=== PATIENT | female | born 1985 | race Caucasian/White ===

== ENCOUNTER → 2016-08-14 | Outpatient (CLI) | payer BC, OTHER ==
[~2016-08-14] MED LIST: ASCO1CAP3; CALC500C70 PO; FERR1TAB23; FOLI1TAB7 PO; MTR600X PO; MULT-506 PO; OXYC-57 PO; PRENTAB26 PO
[2016-08-14 17:56] LABS: MANUAL MICROSCOPIC REQUIRED? NO; REVIEW REQ? NO; URINE APPEARANCE CLEAR (CLEAR); URINE BILIRUBIN NEG (NEG); URINE COLOR YELLOW; URINE EPITHELIAL CELL AUTO >30 /lpf (0-5); URINE NITRITE NEG (NEG); URINE PH 7.5 (4.5-7.5); URINE SPECIFIC GRAVITY 1.011 (1.000-1.030); UROBILINOGEN NEG (NEG)
== END | disposition home or self-care (01) ==
LOC: C.LABSPEC 12:13
PROVIDERS: ATTEND Obstetrics & Gynecology
DX: O09.213 Supervision of pregnancy with history of pre-term labor, third trimester (principal)

== ENCOUNTER → 2016-08-15 | Outpatient (CLI) | payer BC, OTHER ==
[2016-08-15 09:49] LABS: HEMATOCRIT 32.5 % (37-47)
[2016-08-15 11:29] LABS: GTGD 50 Grams
== END | disposition home or self-care (01) ==
LOC: C.LAB 15:36
PROVIDERS: ATTEND Obstetrics & Gynecology
DX: O09.213 Supervision of pregnancy with history of pre-term labor, third trimester (principal)

== ENCOUNTER → 2016-10-08 | Outpatient (CLI) | payer BC | END | disposition home or self-care (01) | LOC: C.LABSPEC 17:24 | PROVIDERS: ATTEND Obstetrics & Gynecology | DX: O09.213 Supervision of pregnancy with history of pre-term labor, third trimester (principal) ==

== ENCOUNTER → 2016-10-18 | Outpatient (CLI) | payer BC ==
[2016-10-18 13:51] LABS: BASO % 0.1 %; BASO ABS # 0.01 K/uL (0-0.2); COMPLETE YES; EOS % 3.1 %; HEMATOCRIT 34.3 % (37-47); IG% 0.4 %; LYMPH % 13.9 %; MEAN CELL VOLUME 89.1 fL (80-100); MEAN CORPUSCULAR HEMOGLOBIN 31.2 pg (25-34); MEAN PLATELET VOLUME 10.9 fL (7.4-10.4); MONO % 5.4 %; NEUT % 77.1 %; PLATELET COUNT 206 K/uL (130-400); RED BLOOD COUNT 3.85 M/uL (4.2-5.4); WHITE BLOOD COUNT 10.08 K/uL (4.8-10.8)
[2016-10-18 14:22] LABS: ALT/SGPT 16 U/L (12-78); AST/SGOT 15 U/L (15-37); CREATININE 0.47 mg/dl (0.60-1.20); URIC ACID 5.3 mg/dl (2.6-7.2)
== END | disposition home or self-care (01) ==
LOC: C.LAB 16:40
PROVIDERS: ATTEND Obstetrics & Gynecology
DX: O09.213 Supervision of pregnancy with history of pre-term labor, third trimester (principal)

== ENCOUNTER → 2016-10-21 | Outpatient (CLI) | payer BC ==
[2016-10-21 12:03] LABS: URINE TOTAL PROTEIN 11.2 mg/dl (0-11.9)
[2016-10-21 13:25] LABS: URINE TOTAL PROTEIN CALC 179.2 mg/24 hr (0-149.1)
== END | disposition home or self-care (01) ==
LOC: C.LABSPEC 09:53
PROVIDERS: ATTEND Obstetrics & Gynecology
DX: O09.213 Supervision of pregnancy with history of pre-term labor, third trimester (principal)

== ENCOUNTER 2016-11-01 12:37 | Inpatient (IN) | payer BC ==
[~2016-11-01] VITALS: Ht 154.9 cm; Wt 83.6 kg
[~2016-11-01 12:37] MED LIST changes: -ASCO1CAP3; -CALC500C70 PO; -FERR1TAB23; -FOLI1TAB7 PO; -MTR600X PO; -OXYC-57 PO; -PRENTAB26 PO
[2016-11-01] MEDS ORDERED: PRENTAB26 PO (13:33)
[2016-11-01] MEDS ORDERED: CALC500C70 PO (13:33)
[2016-11-01] MEDS ORDERED: ASCO1CAP3 (13:33)
[2016-11-01] MEDS ORDERED: FOLI1TAB7 PO (13:33)
[2016-11-01] MEDS ORDERED: FERR1TAB23 (13:33)
[2016-11-01 13:49] VITALS: Ht 154.9 cm; Wt 83.6 kg
[2016-11-01 14:30] LABS: BASO % 0.2 %; BASO ABS # 0.02 K/uL (0-0.2); COMPLETE YES; EOS % 2.7 %; HEMATOCRIT 34.1 % (37-47); IG% 0.3 %; LYMPH ABS # 1.22 K/uL (1.2-3.4); MEAN CELL VOLUME 90.2 fL (80-100); MEAN CORPUSCULAR HEMOGLOBIN 31.5 pg (25-34); MEAN CORPUSCULAR HGB CONC 34.9 g/dl (32-36); MEAN PLATELET VOLUME 11.7 fL (7.4-10.4); MONO % 6.3 %; NEUT % 77.5 %; PLATELET COUNT 188 K/uL (130-400); RED BLOOD COUNT 3.78 M/uL (4.2-5.4)
[2016-11-01 14:43] LABS: ALT/SGPT 17 U/L (12-78); BLOOD UREA NITROGEN 7 mg/dl (7-18); BUN/CREATININE RATIO 14.8 (10-20); CALCIUM 8.6 mg/dl (8.5-10.1); CARBON DIOXIDE 25 mmol/L (21-32); CHLORIDE 104 mmol/L (98-107); CREATININE 0.44 mg/dl (0.60-1.20); GLUCOSE 72 mg/dl (70-99); POTASSIUM 3.9 mmol/L (3.5-5.1); SODIUM 140 mmol/L (136-145)
[2016-11-01 14:47] LABS: ALB/GLOB RATIO 0.8 (0.9-2); ALKALINE PHOSPHATASE 138 U/L (45-117); AST/SGOT 15 U/L (15-37)
[2016-11-01] MEDS ORDERED: LACTATED RINGER'S 1000ML 500 ML IV PRN (19:41)
[2016-11-01] MEDS ORDERED: OXYTOCIN 30 UNITS/500ML NSS IV PRN (19:45)
[2016-11-01] MEDS: LACTATED RINGER'S 1000ML 1,000 ML IV SCH (20:00)
[2016-11-01] MEDS ORDERED: BUPIVACAINE 0.25% 30 ML VIAL ONE (23:42)
[2016-11-01] MEDS ORDERED: EpHEDrine SULFATE INJ 50 MG/ML AMP ONE (23:43)
[2016-11-01] MEDS ORDERED: FENTANYL CITRATE INJ 50 MCG/1 ML 2 ML VIAL ONE (23:43)
[2016-11-01] MEDS ORDERED: FENTANYL 2MCG/ML ROPIV 1.25MG/ML 100ML BAG EPI ONE (23:44)
[2016-11-02] MEDS: LACTATED RINGER'S 1000ML 1,000 ML IV SCH ×3 (00:20→11:53)
[2016-11-02] MEDS ORDERED: NALOXONE HCL INJ 1 MG in SODIUM CHLORIDE 0.9% 1000ML 1,000 ML IV PRN ×3 (00:34→17:59)
[2016-11-02] MEDS ORDERED: LACTATED RINGER'S 1000ML 500 ML IV PRN ×3 (00:34→17:59)
[2016-11-02] MEDS ORDERED: NALBUPHINE HCL INJ 10 MG/ML AMP IV PRN ×3 (00:45→18:00)
[2016-11-02] MEDS ORDERED: ONDANSETRON INJ 2 MG/ML 2 ML VIAL IV PRN ×3 (00:45→18:00)
[2016-11-02] MEDS ORDERED: EpHEDrine SULFATE INJ 50 MG/ML AMP IV PRN ×4 (00:45→18:00)
[2016-11-02] MEDS ORDERED: NALOXONE HCL INJ 0.4 MG/1 ML VIAL/CARP IV PRN ×2 (00:45→10:15)
[2016-11-02] MEDS ORDERED: DiphenhydrAMINE HCL 50 MG/ML VIAL IV PRN ×4 (00:45→18:00)
[2016-11-02] MEDS: FENTANYL 2MCG/ML ROPIV 1.25MG/ML 100ML BAG EPI PRN ×6 (00:49→15:23)
[2016-11-02] MEDS ORDERED: ACETAMINOPHEN 650 MG SUPP PR STA (07:49)
[2016-11-02] MEDS ORDERED: BUPIVACAINE 0.25% 30 ML VIAL ONE (08:21)
[2016-11-02] MEDS ORDERED: FENTANYL CITRATE INJ 50 MCG/1 ML 2 ML VIAL ONE (08:22)
[2016-11-02] MEDS ORDERED: GENTAMICIN CONSULT ACTIVE PRN (09:45)
[2016-11-02] MEDS: AMPICILLIN IV 2 GM in SODIUM CHLOR 0.9% AD-VAN 50ML 50 ML IV SCH ×3 (10:05→22:20)
[2016-11-02] MEDS: DEXTROSE 5% IV SCH ×2 (12:17→20:23)
[2016-11-02] MEDS: GENTAMICIN IV SCH ×2 (12:17→20:23)
[2016-11-02] MEDS ORDERED: CITRIC ACID/SODIUM CITRATE 15 ML UDC PO ONE (16:45)
[2016-11-02] MEDS ORDERED: CEFAZOLIN IV 2,000 MG in DEXTROSE 5% 50ML 50 ML IV SCH (17:00)
[2016-11-02] MEDS ORDERED: LIDOCAINE/EPINEPHRINE 2% 1:200,000 20 ML SDV ONE (17:38)
[2016-11-02] MEDS ORDERED: OXYTOCIN INJ 10 UNITS/ML VIAL ONE (17:38)
[2016-11-02] MEDS ORDERED: MoRPHine SULFATE PF 1 MG/ML 10 ML AMP/VIAL ONE (17:39)
[2016-11-02] MEDS ORDERED: NALOXONE HCL INJ 0.08 MG in SYRINGE 1.8 ML IV PRN (17:59)
[2016-11-02] MEDS ORDERED: SODIUM CHLORIDE 0.9% 1000ML 1,000 ML IV PRN (17:59)
[2016-11-02] MEDS ORDERED: KETOROLAC TROMETHAMINE 30 MG/ML VIAL IV. PRN (18:00)
[2016-11-02] MEDS ORDERED: MoRPHine SULFATE PF 1 MG/ML 10 ML AMP/VIAL EPI PRN (18:00)
[2016-11-02] MEDS ORDERED: METOCLOPRAMIDE HCL INJ 20 MG in SODIUM CHLORIDE 0.9% 50ML 50 ML IV PRN (18:00)
[2016-11-02] MEDS ORDERED: MoRPHine SULFATE 2 MG/ML CARP IV PRN (18:00)
[2016-11-02] MEDS ORDERED: LABETALOL HCL IV 5 MG/ML 20ML IV PRN (18:00)
[2016-11-02] MEDS ORDERED: ATROPINE SULFATE 0.1 MG/ML 5ML SYR IV PRN (18:00)
[2016-11-02] MEDS ORDERED: MEPERIDINE HCL 25 MG/ML CARP IV PRN ×2 (18:00)
[2016-11-02] MEDS ORDERED: NO NARCOTICS OR SEDATIVES SCH (18:00)
[2016-11-02] MEDS ORDERED: NALOXONE HCL 0.4 MG/1 ML VIAL/CARP IV PRN (18:00)
[2016-11-02] MEDS ORDERED: HYDROmorphone INJ 1 MG/ML SYR IV PRN (18:00)
[2016-11-02] MEDS ORDERED: FENTANYL CITRATE INJ 50 MCG/1 ML 2 ML VIAL IV PRN (18:00)
[2016-11-02] MEDS ORDERED: EpHEDrine SULFATE 50MG/5ML SYR ONE (18:03)
[2016-11-02] MEDS ORDERED: LACTATED RINGER'S 1000ML 1,000 ML IV SCH (18:13)
[2016-11-02] MEDS ORDERED: HYDROCORTISONE ACETATE 25 MG SUPP PR PRN (18:15)
[2016-11-02] MEDS ORDERED: SUPERCREAM 0.870 % 15GM JAR EXT PRN (18:15)
[2016-11-02] MEDS ORDERED: MAGNESIUM HYDROXIDE SUSP 30 ML UDC PO PRN (18:15)
[2016-11-02] MEDS ORDERED: LANOLIN OINT EXT PRN ×2 (18:15)
[2016-11-02] MEDS ORDERED: BENZOCAINE 20% AER SPR 82.5 GM CAN EXT PRN (18:15)
--- NOTE | 2016-11-02 18:20 | [facility] Post Operative Brief Note ---
Immediate Operative Summary Operative Date Nov 02, 2016. Pre-Operative Diagnosis Term IUP at 39 weeks complicated by gestitational hypertension and chorioamnionitis. Post-Operative Diagnosis same Procedure(s) Performed Primary caesarean section with the of a live female child born at 1727. Surgeon Tremayne Xiao DO Pipe Smoking Machine Offbearer Surgeon(s) Odilia Martinez RN Estimated Blood Loss 600ML Findings Viable female , Apgars 8/9 Weight 7#0. Normal appearing uterus, tubes, ovaries. Specimens A: placenta- exam B: cord blood C: cord gases Drains Mahajan, clear yellow Anesthesia Epidural Complication(s) None Disposition Recovery Room / PACU
--- NOTE | 2016-11-02 18:37 | Anesthesia Procedure Note ---
Anesthesia Epidural Removal Nt Date & Time Nov 02, 2016 at 18:37 Vital Signs Pain Intensity: 0.0 Notes Mental Status: alert / awake / arousable, participated in evaluation Nausea / Vomiting: adequately controlled Pain: adequately controlled Airway Patency, RR, SpO2: stable & adequate BP & HR: stable & adequate Hydration State: stable & adequate Neuraxial Anesthesia: was administered, sensory block is resolving Anesthetic Complications: no major complications apparent, pt satisfied with anesthetic care Epidural: removed without complications, with tip intact
--- NOTE | 2016-11-02 19:07 | Anesthesiology Progress Note ---
Anesthesia Post Op Note Date & Time Nov 02, 2016 at 19:07 Vital Signs Pain Intensity: 0.0 Notes Mental Status: alert / awake / arousable, participated in evaluation Pt Amnestic to Procedure: Yes Nausea / Vomiting: adequately controlled Pain: adequately controlled Airway Patency, RR, SpO2: stable & adequate BP & HR: stable & adequate Hydration State: stable & adequate Neuraxial Anesthesia: was administered, sensory block is resolving Anesthetic Complications: no major complications apparent
--- NOTE | 2016-11-02 19:09 | OPERATIVE REPORT ---
DATE OF OPERATION: 11/02/2016 PREOPERATIVE DIAGNOSES: 1. A 31-year-old G2, P0-1-0-0 at 39 weeks 4 days. 2. Induction of labor secondary to gestational hypertension. 3. Failure to dilate. 4. History of delivery in first with subsequent demise. 5. Chorioamnionitis during labor. POSTOPERATIVE DIAGNOSES: Same. PROCEDURE: Primary low transverse section. SURGEON: Luh Xiao DO FIRE SPRINKLER SERVICE TECHNICIAN: Ama Martinez RN. ESTIMATED BLOOD LOSS: 600 mL. FINDINGS: Viable female , Apgars 8 and 9, weight 7 pounds 0 ounces with normal appearing uterus, tubes, and ovaries. SPECIMENS: Placenta, cord blood and cord gases. DRAINS: Mahajan, clear yellow at the conclusion of case. ANESTHESIA: Epidural redosed. COMPLICATIONS: None. DISPOSITION: Stable and good to recovery room. INDICATIONS FOR PROCEDURE: The patient was undergoing induction of labor secondary to gestational hypertension and was also concurrently being treated for chorioamnionitis with ampicillin and gentamicin due to elevated maternal temperature and tachycardia. She remained at 6 cm dilation for approximately 10 hours with 3 hours of adequate contractions with the use of Pitocin as monitored by at least 200 Sheridan units by intrauterine pressure catheter. Upon diagnosis of the failure to dilate beyond 6 cm, I discussed risks, benefits, alternatives to section and the patient elected to proceed with section. DESCRIPTION OF PROCEDURE: Informed consent was obtained. All questions were answered. The patient was taken to the operating room where 2 grams of Ancef were infused. A timeout was confirmed. A Pfannenstiel skin incision was made with a scalpel and carried through to the underlying layer of the fascia with sharp and blunt dissection. The fascia was nicked at midline and this incision was bluntly dissected. The anterior aspect of the fascial incision was grasped with Pablito clamps x2 and elevated off the underlying rectus abdominis. In a similar fashion, the inferior aspect of the incision was dissected both bluntly and sharply. These muscles were at midline. The peritoneum was entered bluntly digitally and this incision was extended bluntly. Bladder blade was placed. A bladder flap was created using Metzenbaum scissors. The bladder blade was replaced. The uterine incision was made with a scalpel and extended cephalad/caudad manually. The infant was delivered from a cephalic presentation. The head delivered, followed by the anterior and posterior shoulders, followed by the body. Spontaneous cry was heard on the field. The cord was doubly clamped and cut. Baby was handed off to the awaiting bread jockey. A cord segment was obtained for cord gases. Cord blood was obtained. The placenta was then delivered spontaneously intact with a 3-vessel cord. The uterus was exteriorized and Pitocin was given. The hysterotomy incision was reapproximated using 0 Vicryl in a running locked stitch, a second layer of the same stitch was used to imbricate the hysterotomy incision. The uterus became firm. The posterior aspect of the uterus was inspected and the uterus was returned to the abdomen. The gutters were cleared of all clots and debris. The hysterotomy incision was inspected again and multiple [id number] sutures were made with 2-0 Vicryl to obtain excellent hemostasis. The fascial incision was reapproximated using 0 Vicryl in a running stitch. The subcutaneous tissue was reapproximated using 2-0 plain gut in a running stitch and the skin incision was reapproximated using 4-0 Vicryl in a running subcuticular stitch. Steri-Strips were applied. The patient was taken to her room to recover in stable and good condition. I attest to the content of the Intraoperative Record and any orders documented therein. Any exceptions are noted below. BALTAZAR
[2016-11-02] MEDS: DOCUSATE SODIUM 100 MG CAP PO SCH (20:00)
[2016-11-02] MEDS: SIMETHICONE 80 MG CHEW PO SCH (20:37)
[2016-11-02 20:40] VITALS: BP 133/85; PULSE 85; TEMP 36.7; O2SAT 95
[2016-11-02 22:00] VITALS: O2SAT 95
[2016-11-02 23:00] VITALS: O2SAT 95
[2016-11-02] MEDS: OXYTOCIN INJ 30 UNITS in LACTATED RINGER'S 1000ML 1,000 ML IV SCH (23:58)
[2016-11-03] VITALS (13 sets, daily range): BP systolic 96–123; BP diastolic 58–82; PULSE 93–103; TEMP 36.7–37.3; O2SAT 95–98
[2016-11-03] MEDS: AMPICILLIN IV 2 GM in SODIUM CHLOR 0.9% AD-VAN 50ML 50 ML IV SCH (04:22)
[2016-11-03] MEDS: DEXTROSE 5% IV SCH (05:00)
[2016-11-03] MEDS: GENTAMICIN IV SCH (05:00)
[2016-11-03 06:54] LABS: BASO % 0.1 %; BASO ABS # 0.01 K/uL (0-0.2); COMPLETE YES; EOS % 0.5 %; HEMATOCRIT 28.9 % (37-47); IG% 0.5 %; LYMPH % 7.4 %; LYMPH ABS # 1.04 K/uL (1.2-3.4); MEAN CELL VOLUME 89.5 fL (80-100); MEAN CORPUSCULAR HGB CONC 34.6 g/dl (32-36); NEUT % 86.5 %; PLATELET COUNT 175 K/uL (130-400); RED BLOOD COUNT 3.23 M/uL (4.2-5.4); WHITE BLOOD COUNT 14.13 K/uL (4.8-10.8)
[2016-11-03 07:29] LABS: CREATININE 0.58 mg/dl (0.60-1.20)
--- NOTE | 2016-11-03 08:17 | Progress Note ---
Subjective Nov 03, 2016. Subjective conversation w/ patient, physical exam Ambulation: limited ambulation Voiding: haddad catheter in place Passing Gas: No Diet Tolerance: Clear Liquids Lochia: Moderate Feeding Type: Breast Feeding Pain: controlled Review of Systems Constitutional: No problem reported Respiratory: No problem reported Cardiac: No problem reported Breast: No problem reported Abdomen: No problem reported Female : No problem reported Objective Vital Signs Date Time Temp Pulse Resp B/P Pulse Ox O2 Delivery O2 Flow Rate FiO2 11/03/16 06:00 16 95 11/03/16 05:00 37.1 95 16 96/58 95 Room Air 11/03/16 05:00 16 95 11/03/16 04:00 18 96 11/03/16 02:00 16 95 11/03/16 01:00 16 95 11/03/16 00:24 Room Air 11/03/16 00:18 36.7 96 16 116/76 98 Room Air 11/03/16 00:05 20 98 11/02/16 23:00 16 95 11/02/16 22:00 16 95 11/02/16 20:40 36.7 85 16 133/85 95 Room Air 11/02/16 20:40 Room Air 11/02/16 20:40 Room Air 11/02/16 20:40 16 95 Physical Exam General Appearance: WELL-APPEARING, NO APPARENT DISTRESS Respiratory/Chest: no respiratory distress Cardiovascular: regular rate, rhythm Abdomen: non tender, soft Fundus: Firm Incision Description: Clean, Dry & Intact (bandage in place - no oozing around bandage) Extremities: normal inspection Laboratory Results Last 24 Hours Test 11/03/16 06:28 White Blood Count 14.13 K/uL Red Blood Count 3.23 M/uL Hemoglobin 10.0 g/dL Hematocrit 28.9 % Mean Corpuscular Volume 89.5 fL Mean Corpuscular Hemoglobin 31.0 pg Mean Corpuscular Hemoglobin Concent 34.6 g/dl Platelet Count 175 K/uL Mean Platelet Volume 11.0 fL Neutrophils (%) (Auto) 86.5 % Lymphocytes (%) (Auto) 7.4 % Monocytes (%) (Auto) 5.0 % Eosinophils (%) (Auto) 0.5 % Basophils (%) (Auto) 0.1 % Neutrophils # (Auto) 12.24 K/uL Lymphocytes # (Auto) 1.04 K/uL Monocytes # (Auto) 0.70 K/uL Eosinophils # (Auto) 0.07 K/uL Basophils # (Auto) 0.01 K/uL RDW Standard Deviation 41.9 fL RDW Coefficient of Variation 13.0 % Immature Granulocyte % (Auto) 0.5 % Immature Granulocyte # (Auto) 0.07 K/uL Creatinine 0.58 mg/dl Est Creatinine Clear Calc Drug Dose 140.3 ml/min Estimated GFR () 144.4 Estimated GFR (Non- 124.6 Assessment and Plan Post-Op Day#: 1 Continue Routine Care: POD#1 PLTCS for failure to dilate beyond 6cm IOL was started for gHTN - BPs stable Chorioamnionitis - amp/gent given during labor Haddad to be removed later this morning, ambulate later today. Increase diet. Doing well.
[2016-11-03] MEDS: SIMETHICONE 80 MG CHEW PO SCH ×4 (09:17→19:35)
[2016-11-03] MEDS: DOCUSATE SODIUM 100 MG CAP PO SCH ×2 (09:17→19:35)
[2016-11-03] MEDS: OXYTOCIN INJ 30 UNITS in LACTATED RINGER'S 1000ML 1,000 ML IV SCH (09:17)
[2016-11-03] MEDS ORDERED: GENTAMICIN TROUGH SCH (11:30)
[2016-11-03] MEDS ORDERED: OXYCODONE/ACETAMINOPHEN 5-325 TAB PO PRN ×2 (11:45)
[2016-11-03] MEDS ORDERED: KETOROLAC TROMETHAMINE 30 MG/ML VIAL IV. PRN (11:45)
[2016-11-03] MEDS ORDERED: DC INTRASPINAL MORPHINE ONE (11:45)
[2016-11-03] MEDS ORDERED: DiphenhydrAMINE HCL 50 MG/ML VIAL IV PRN (11:45)
[2016-11-03] MEDS ORDERED: ONDANSETRON INJ 2 MG/ML 2 ML VIAL IV PRN (11:45)
[2016-11-03] MEDS ORDERED: IBUPROFEN 600 MG TAB PO PRN (11:45)
[2016-11-03] MEDS ORDERED: PROMETHAZINE HCL INJ 25 MG in SODIUM CHLORIDE 0.9% 50ML 50 ML IV PRN (11:45)
[2016-11-03] MEDS ORDERED: GENT. PEAK 1 EA IV SCH (13:00)
[2016-11-03] MEDS ORDERED: BISACODYL 5 MG TABEC PO ONE (22:00)
[2016-11-04 07:20] VITALS: BP 136/97; PULSE 98; TEMP 36.8
--- NOTE | 2016-11-04 08:14 | Progress Note ---
Subjective Nov 04, 2016. Subjective conversation w/ patient, physical exam Ambulation: ambulating normally Voiding: haddad catheter in place Passing Gas: Yes Diet Tolerance: Regular Diet Lochia: Small Feeding Type: Breast Feeding Review of Systems Constitutional: No chills, No fever, No sweats Respiratory: No cough, No shortness of breath Cardiac: No chest pain, No claudication Objective Vital Signs Date Time Temp Pulse Resp B/P Pulse Ox O2 Delivery O2 Flow Rate FiO2 11/03/16 23:50 37.3 99 18 120/74 Room Air 11/03/16 23:50 Room Air 11/03/16 17:50 36.9 103 20 123/82 Room Air 11/03/16 17:50 Room Air 11/03/16 12:00 37.1 96 18 109/71 97 Room Air 11/03/16 08:45 36.8 93 16 108/62 95 Room Air 11/03/16 08:45 95 Room Air Physical Exam General Appearance: WELL-APPEARING, NO APPARENT DISTRESS Respiratory/Chest: lungs clear, no accessory muscle use Cardiovascular: regular rate, rhythm, no murmur Fundus: Firm, Non-Tender, Relation to Umbilicus (at umbilicus) Incision Description: Clean, Dry & Intact Extremities: non-tender, no calf tenderness Assessment and Plan Post-Op Day#: 2 Continue Routine Care: s/p C-sectio Day 2 - vitals reviewed and wnl - Hgb 10.0 yesterday - blood: B+, Rubella immune, GBS unknown - encourage ambulation, encourage , monitor lochia - patient doing well clinically - CONTINUE ROUTINE POST CARE Resident Physician Supervision Note: I interviewed and examined the patient. Discussed with Dr. Marin and agree with findings and plan as documented in the note. Any exceptions or clarifications are listed here: Doing well, routine care. Documented By: Maura Olmedo
[2016-11-04] MEDS: DOCUSATE SODIUM 100 MG CAP PO SCH ×2 (08:53→20:08)
[2016-11-04] MEDS: SIMETHICONE 80 MG CHEW PO SCH ×4 (08:53→20:08)
[2016-11-04 16:20] VITALS: BP 129/85; PULSE 90; TEMP 36.8
[2016-11-04] MEDS ORDERED: BISACODYL 10 MG SUPP PR PRN (18:15)
[2016-11-05] VITALS: BP 114/81; PULSE 90; TEMP 36.6
--- NOTE | 2016-11-05 07:00 | Progress Note ---
Subjective Nov 05, 2016. Subjective conversation w/ patient, physical exam Ambulation: ambulating normally Voiding: no voiding problems Passing Gas: Yes Diet Tolerance: Regular Diet Lochia: Small Feeding Type: Breast Feeding Review of Systems Constitutional: No chills, No fever Respiratory: No cough, No shortness of breath Cardiac: No chest pain, No claudication Objective Vital Signs Date Time Temp Pulse Resp B/P Pulse Ox O2 Delivery O2 Flow Rate FiO2 11/05/16 00:00 36.6 90 16 114/81 11/05/16 00:00 Room Air 11/04/16 16:20 36.8 90 18 129/85 11/04/16 16:20 Room Air 11/04/16 07:20 36.8 98 18 136/97 11/04/16 07:20 Room Air Physical Exam General Appearance: WELL-APPEARING, NO APPARENT DISTRESS Respiratory/Chest: lungs clear, no accessory muscle use Cardiovascular: regular rate, rhythm, no murmur Fundus: Firm, Non-Tender, Relation to Umbilicus (at umbilicus) Incision Description: Clean, Dry & Intact Extremities: non-tender, no calf tenderness Assessment and Plan Post-Op Day#: 3 Continue Routine Care: Resident Physician Supervision Note: I interviewed and examined the patient. Discussed with Dr. Marin and agree with findings and plan as documented in the note. Any exceptions or clarifications are listed here: [None] Documented By: Priscilla Garcia s/p Day 3 - vitals reviewed and wnl - Hgb 10.0 two days ago - blood: B+, Rubella immune, GBS negative - encourage ambulation, encourage , monitor lochia - patient doing well clinically - patient counselled on discharge instructions - PATIENT TO BE DISCHARGED TODAY
--- NOTE | 2016-11-05 07:22 | Discharge Instructions ---
Discharge Instructions Date of Service Nov 05, 2016. Admission Reason for Admission: IUP Discharge Discharge Diagnosis / Problem: Spontaneous Vaginal Delivery Discharge Goals Goal(s): Routine recovery after delivery Medications Continue Dispensed Medications: supercream, dermaplast, tucks, lansinoh Activity Recommendations Activity Limitations: per Instructions/Follow-up section . Instructions / Follow-Up Instructions / Follow-Up ACTIVITY RECOMMENDATIONS: * Gradual return to full activity over the next 2-3 weeks. * No lifting - nothing heavier than baby over the next 2-3 weeks. * Do not engage in vigorous exercise, sexual activity or sports until cleared by your physician. * Do not drive or operate any motorized equipment until cleared by your physician. * You may shower/bathe daily. MEDICATIONS: For discomfort or pain, you may use Acetaminophen (Tylenol), Ibuprofen (Advil), or Naproxen (Aleve) following the package directions. For constipation you may use Colace following the package directions. BREAST CARE: If you are not breast feeding: * Wear a supportive bra 24 hours a day for one to two weeks. * Avoid stimulating your breasts and nipples as much as possible during the first few weeks after delivery. * When taking a shower, have the warm water hit your back, not breasts. * When your breasts feel full, apply ice packs. Usually three to four times a day helps ease the discomfort. * Take a mild pain medication (Tylenol / Motrin) when you are uncomfortable. If breast feeding: * Use breast milk to lubricate nipples. Lansinoh cream may be used for sore nipples. You do not need to remove cream prior to breast feeding. If using a different brand of cream, check the label for directions regarding removal of cream prior to nursing. * Wear a supportive bra. * If having problems with breasts or breast feeding, call a staff consultant or your health care provider. EPISIOTOMY CARE: After delivery, if you have an episiotomy (stitches), the following steps will ease discomfort and aid healing. * For the first 24 hours after delivery, place ice packs next to your episiotomy to help reduce swelling. * After the first 24 hour-period, sitz baths, either portable or in the tub, are suggested. A shower with a shower arm sprayed over the episiotomy may be comforting. * Anca care should be done after each voiding and bowel movement. Squirt warm water from a plastic bottle over the perineum (region of the body between the anus and urinary opening) and pat dry. * Use Dermoplast to ease discomfort. Shake container. Clarkson directly over the episiotomy. Place a Tucks on a clean sanitary pad next to your episiotomy. SPECIAL CARE INSTRUCTIONS: When you are discharged from the hospital, it is important for you to follow the instructions listed below: * During the first week at home, you should be able to care for yourself and your baby. In addition, the usual light household activities are encouraged. * Limit your activities to the way you feel. Do not try to clean the house or move furniture. Be sensible. * If you actively engage in sports and have done so up until the time of your delivery, you may resume these activities as soon as you feel able. This may take up to one month or even longer. Use good judgment. * Continue to take your vitamins for at least six weeks after the of your baby. * Your diet need not be limited unless you were on a special diet before your delivery. Breast-feeding mothers need around 2500 calories per day and at least 64-80 ounces of fluid per day (8 to 10 glasses). * You should eat foods from the four major food groups. Crash diets or fad diets are to be avoided. Eating lean meats, fresh fruits and vegetables, low-fat dairy products, high fiber foods and a regular exercise program, will help you get back to your pre- weight without putting your health at risk. * Constipation is sometimes a problem after delivery. Take a mild laxative as needed. If breast feeding, Milk of Magnesia is acceptable to use. You may use a suppository or Fleets enema if no episiotomy. * A daily shower or tub bath is suggested. Be sure to thoroughly and gently dry the perineum. * A bloody vaginal discharge will usually continue until around four weeks post . A small amount of bleeding may continue for as long as six weeks. Vaginal discharge changes from the bright red bleeding after delivery to pink then brownish and finally yellowish-pink before becoming white and disappearing. * Bleeding may increase with activity. Your first period may come in 4-8 weeks. If you are breast feeding, your period may be delayed even longer. * Huxley (sex) can begin whenever both you and your partner feel comfortable and do not have any form of genital infection. It is recommended that you wait at least six weeks for internal and external healing to occur. If you have questions, please talk to your health care practitioner. A condom should be used to prevent infection and . * Foreplay, gentle intercourse and lubrication is very important the first several times to prevent pain. A water-based lubricant such as K-Y jelly or Astroglide may be used. * If you have RH negative blood and your baby is RH positive, you will receive RHOGAM by injection prior to discharge. The nurse will give you a card to keep with you that has the date and place that you received RHOGAM after delivery. * During your care, you had a Rubella screen done to check for the presence of rubella antibodies in your blood. If your test was negative, you will receive a Rubella vaccine prior to discharge. This vaccine may cause a fever, soreness at the injection site and flu-like symptoms. If these symptoms persist, notify your health care practitioner. is not advised for one month after a Rubella vaccine. * Verbalizes understanding of car seat law as reviewed with patient nursing. * Car Seat hand-out given and reviewed with patient by nursing. * Shaken baby information reviewed with patient by nursing. Call you doctor if: * Heavy bleeding (saturating several pads an hour) or passing clots the size of your fist. * A fever >101 degrees F (38.3 degrees C) on two occasions four hours apart and /or chills. * Unusual pain in the pelvic or vaginal areas. * "Baby Blues" lasting longer than two weeks. If you have any questions or concerns, call your health care practitioner at . FOLLOW UP VISIT: * Please call the office at to schedule a 6 week examination. It is important you keep this appointment. It is important for you to make arrangements for either yearly or twice yearly check-ups thereafter. Current Hospital Diet Patient's current hospital diet: Regular OB Diet Discharge Diet Recommended Diet: Regular Diet Procedures Procedures Performed: Primary caesarean section with the of a live female child born at 1727. Pending Studies Studies pending at discharge: no Medical Emergencies . Who to Call and When: Medical Emergencies: If at any time you feel your situation is an emergency, please call 911 immediately. . Non-Emergent Contact Non-Emergency issues call your: Primary Care Provider, [facility] Supervisor . . "Provider Documentation" section prepared by Mal Marin. VTE Core Measure Inpt VTE Proph given/why not?: Treatment not indicated
[2016-11-05 07:37] VITALS: BP 120/80; PULSE 76; TEMP 36.8
[2016-11-05] MEDS ORDERED: OXYC-57 PO (08:11)
[2016-11-05] MEDS ORDERED: MTR600X PO (08:11)
[2016-11-05] MEDS: DOCUSATE SODIUM 100 MG CAP PO SCH (08:27)
[2016-11-05] MEDS: SIMETHICONE 80 MG CHEW PO SCH (08:27)
[2016-11-05 09:03] VITALS: O2SAT 96
--- NOTE | 2016-11-13 09:29 | DISCHARGE SUMMARY ---
ADMISSION DIAGNOSES: 1. A 31-year-old G2, P0-1-0-0 at 39 weeks 4 days. 2. Induction of labor secondary to gestational hypertension. DISCHARGE DIAGNOSES: Same plus failure to dilate and chorioamnionitis. PROCEDURES PERFORMED: Primary low transverse section. FINDINGS: Viable female , Apgars 8 and 9, weight 7 pounds 0 ounces. COMPLICATIONS: None. DESCRIPTION OF STAY: The patient was admitted with the above noted diagnoses. She was undergoing induction of labor secondary to gestational hypertension; however, had failure to dilate during labor as well as chorioamnionitis, therefore primary low transverse section was performed. The patient tolerated the procedure well and recovered in stable and good condition and was discharged to home on postoperative day 3. CONDITION ON DISCHARGE: Stable and good. MEDICATIONS: Percocet and Motrin. Follow up office in 2 weeks. DIET: Regular. ACTIVITY: Pelvic rest and no heavy lifting.
== END 2016-11-05 11:30 | disposition home or self-care (01) | DRG 765 ==
LOC: C.OPB 12:37 → C.LD 13:16 → C.OPB 14:50 → C.LD 14:50 → C.OBG 11-02 20:37 → EDSTATUS 11-05 12:35
PROVIDERS: ADMIT Obstetrics & Gynecology; ATTEND Obstetrics & Gynecology
PROC: 0U7C7ZZ Dilation of Cervix, Via Natural or Artificial Opening (ICD-10-PCS; principal; 2016-11-02 16:51)
PROC: 10H07YZ Insertion of Other Device into Products of Conception, Via Natural or Artificial Opening (ICD-10-PCS; principal; 2016-11-02 16:51)
PROC: 10D00Z1 Extraction of Products of Conception, Low, Open Approach (ICD-10-PCS; principal; 2016-11-02 16:51)
DX: O62.0 Primary inadequate contractions (principal); O41.1230 Chorioamnionitis, third trimester, not applicable or unspecified; O13.4 Gestational [pregnancy-induced] hypertension without significant proteinuria, complicating childbirth; O76 Abnormality in fetal heart rate and rhythm complicating labor and delivery; Z87.51 Personal history of pre-term labor; Z37.0 Single live birth; Z3A.39 39 weeks gestation of pregnancy

== ENCOUNTER → 2017-03-04 | Outpatient (CLI) | payer BC ==
[~2017-03-04] MED LIST changes: +ASCO1CAP3; +CALC500C70 PO; +FERR1TAB23; +FOLI1TAB7 PO; +MTR600X PO; -MULT-506 PO; +OXYC-57 PO; +PRENTAB26 PO
--- NOTE | 2017-03-04 12:29 | DIAGNOSTIC IMAGING REPORT ---
CHEST 2 VIEWS ROUTINE CLINICAL HISTORY: SOB dyspnea COMPARISON STUDY: No previous studies for comparison. FINDINGS: The bones soft tissues and hemidiaphragms are normal. The cardiomediastinal silhouette is normal. The lungs are clear. The pulmonary vasculature is normal. IMPRESSION: Negative chest. The above report was generated using voice recognition software. It may contain grammatical, syntax or spelling errors. Electronically signed by: Fito Durham M.D. 03/04/2017 12:27 PM Dictated Date/Time: 03/04/2017 12:27 PM
== END | disposition home or self-care (01) ==
LOC: C.RAD 12:10
PROVIDERS: ATTEND Internal Medicine Hematology & Oncology
DX: R06.02 Shortness of breath (principal)

== ENCOUNTER → 2017-03-20 | Outpatient (CLI) | payer BC ==
[~2017-03-20] MED LIST changes: +OPTIRAY 320 IV PRN
--- NOTE | 2017-03-20 17:32 | DIAGNOSTIC IMAGING REPORT ---
CT ANGIOGRAM OF THE CHEST CLINICAL HISTORY: Shortness of breath, dyspnea. COMPARISON STUDY: CT scan dated 12/27/2012, chest x-ray dated 03/04/2017 TECHNIQUE: Following the IV administration of 94 mL of Optiray-320, CT angiogram of the thorax was performed from the thoracic inlet to the lung bases utilizing the pulmonary embolus protocol. Images are reviewed in the axial, sagittal, and coronal planes. IV contrast was administered without complication. MIP imaging was performed. A dose lowering technique was utilized adhering to the principles of ALARA. CT DOSE: 324.77 mGy.cm FINDINGS: No pathologically enlarged axillary mediastinal or hilar lymph nodes were visualized. There was no evidence of thoracic aortic dilatation. There were no pulmonary artery filling defects to indicate acute pulmonary embolism. No pleural effusions are visualized. There was no evidence of focal pulmonary consolidation. There are mild dependent atelectatic changes. There is respiratory motion artifact. IMPRESSION: 1. No evidence of acute pulmonary embolism 2. No evidence of focal pulmonary consolidation 3. No evidence of pathologic adenopathy Electronically signed by: Esteban Lugo M.D. 03/20/2017 5:31 PM Dictated Date/Time: 03/20/2017 5:29 PM
== END | disposition home or self-care (01) ==
LOC: C.CTS 17:13
PROVIDERS: ATTEND Nurse Practitioner
DX: R07.1 Chest pain on breathing (principal)

== ENCOUNTER → 2017-12-19 | Outpatient (CLI) | payer BC ==
[~2017-12-19] MED LIST changes: -FOLI1TAB7 PO; +FOLI1TAB8 PO; -OPTIRAY 320 IV PRN
== END | disposition home or self-care (01) ==
LOC: C.LABSPEC 17:39 → C.PAPS 17:42
PROVIDERS: ATTEND Obstetrics & Gynecology
DX: Z01.419 Encounter for gynecological examination (general) (routine) without abnormal findings (principal)